=== PATIENT | female | born 1935 | race Caucasian/White ===

== ENCOUNTER → 2016-10-18 | Outpatient (CLI) | payer OTHER ==
[~2016-10-18] MED LIST: ADULT LOW DOSE81 MG PO; BETAPACE AF80 MG PO; CALCIUM OR; CENTRUM TABLET1 TAB PO; CRESTOR20 MG PO; ENTOCORT EC 3 MG3 MG PO; FISH OIL 1,0001 EAC5 PO; GLUCOPHAGE XR500 MG PO; K-DUR10 ME1 PO; LEVOTHROID75 MCG PO; LIPITOR20 MG PO; LOVENOX; NORCO 5-325 TA1 EACH PO; PENTASA OR; PENTASA500 MG PO; SOTALOL 120 MG120 M1 PO; TRINATE TABLET1 TAB PO; ZESTRIL10 MG PO
--- NOTE | ~2016-10-18 | 2DMMODE ---
[facility] [place] [address] 2 D/M-MODE ECHOCARDIOGRAM Name: PEDRO MOLINA Room #: REG CL KurtTrudy#: [id number] Admission: 10/18/16 Attend Phys: Keven Couch MD Discharge: Date of : 39 Date of Service: 10/18/16 1302 Report #: [id number] THIS REPORT FOR: //name// Transthoracic Echocardiography Ordering physician: Keven Couch MD Referring physician: John Almanza MD Model Engine Mechanic: CHRISTOPHER Berry Indications/History: Atrial fibrillation, HTN. BP: 146 / HR: 71bpm Height: 63in Weight: 139.7lb 82 Study data: M-mode, complete 2D, complete spectral Doppler, and color Doppler. Location: Echo laboratory. Routine. Image quality was good. 2D measurements Normal Normal LVID ED 40.7mm 36-57 IVS ED 11.1mm 6-11 LVID ES 26.4mm 23-40 LVPW ED 9.6mm 6-11 LA volume 33ml/m2 16-28 AoRoot diam 28mm 21-37 index ED LVOT diameter 20mm 18-23 Findings: Left ventricle: The cavity size was normal. Wall thickness was normal. Systolic function was normal. The estimated ejection fraction was in the range of 60% to 65%. Wall motion was normal. Right ventricle: The cavity size was normal. Systolic function was normal. Right atrium: The atrium was normal in size. Left atrium: The atrium was normal in size. Volume index: 33ml/m2 (S). Aortic valve: Trileaflet; mildly calcified leaflets. Doppler: There was no stenosis. No regurgitation. Peak velocity: 133.7cm/s (S). [address] [address] 2 D/M-MODE ECHOCARDIOGRAM Name: PEDRO MOLINA Room #: REG YANELIS Mcmillan#: [id number] Admission: 10/18/16 Attend Phys: Keven Couch MD Discharge: Date of : 37 Date of Service: 10/18/16 1302 Report #: [id number] Mitral valve: Structurally normal valve. Doppler: There was no evidence for stenosis. No regurgitation. Peak E-wave velocity: 67.5cm/s. Peak A-wave velocity: 82.6cm/s. Tricuspid valve: Structurally normal valve. Doppler: There was no evidence for stenosis. Mild regurgitation. Regurgitant peak velocity: 268.3cm/s. Peak RV-RA gradient: 29mm Hg (S). Pulmonic valve: Structurally normal valve. Doppler: There was no evidence for stenosis. No regurgitation. Pericardium: There was no pericardial effusion. Aorta: Aortic root: The aortic root was normal in size. Pulmonary artery: Systolic pressure was estimated to be 34mm Hg. Diastolic function: Doppler parameters are consistent with abnormal left ventricular relaxation (grade 1 diastolic dysfunction). Systemic veins: Inferior vena cava: The vessel was normal in size; the respirophasic diameter changes were in the normal range (= 50%). Conclusions 1. Left ventricle: The cavity size was normal. Wall thickness was normal. Systolic function was normal. The estimated ejection fraction was in the range of 60% to 65%. 2. Right ventricle: The cavity size was normal. 3. Left atrium: The atrium was normal in size. 4. Aortic valve: Trileaflet; mildly calcified leaflets. There was no stenosis. 5. Mitral valve: No regurgitation. 6. Tricuspid valve: Mild regurgitation. <ELECTRONICALLY SIGNED> By: Keven Couch MD 10/18/16 141 1302 10 Keven Couch MD /alden
== END ==
LOC: CV 12:46
DX: I48.91 Unspecified atrial fibrillation (principal); I10 Essential (primary) hypertension

== ENCOUNTER 2018-08-22 06:48 | Inpatient (IN) | payer OTHER ==
[~2018-08-22] VITALS: Ht 160 cm; Wt 69.8 kg
--- NOTE | ~2018-08-22 | HC ---
[facility] [place] [address] CONSULTATION Name: PEDRO MOLINA Room #: 219-P ADM IN M.R.#: [id number] Admission: 08/22/18 Attend Phys: Carol Coelho MD Discharge: Date of : 37 Report #: [id number] THIS REPORT FOR: //name// CC: John Coelho HISTORY OF PRESENT ILLNESS: This is an 83-year-old white female who was seen in consultation regarding to persistent unexplained leukocytosis. She is accompanied by her granddaughter. She was seen previously at [facility] and is followed by Dr. John Almanza. He recommended hematology consultation for white count of 30,000, which has not been performed nor pursued by the patient over the past 2 months. She denies any suspicious palpable masses or pain. She has not had any recently known infections. She has not had sweats, chills, fevers. Because of recent illness, she has lost weight, but less than 10%. PAST MEDICAL HISTORY: Significant for paroxysmal atrial fibrillation. She has known medically managed hypertension and hyperlipidemia. She also has Crohn's disease. ALLERGIES: None known. MEDICATIONS: As listed on the MFR. SOCIAL HISTORY: She is nondrinker, nonsmoker. FAMILY HISTORY: Not contributory. REVIEW OF SYSTEMS: As in history of present illness. PHYSICAL EXAMINATION: GENERAL: Shows her to be alert. Granddaughter is present. She currently is afebrile. HEENT: Normocephalic. NECK: Supple. She has no palpable supraclavicular, axillary lymph nodes. CHEST: Clear. CARDIOVASCULAR: Normal S1, S2. ABDOMEN: Soft. There is no palpable spleen. EXTREMITIES: No clubbing, cyanosis or edema. NEUROLOGIC: No focal localized signs. PSYCHIATRIC: Not agitated or confused. LYMPHATICS: No suspicious adenopathy. LABORATORY DATA: Bhumika records were reviewed, which showed a white count of 27,000, but no differential included. [address] [address] CONSULTATION Name: PEDRO MOLINA HOMER Room #: 219-P ADM IN .R.#: [id number] Admission: 08/22/18 Attend Phys: Carol Coelho MD Discharge: Date of : 37 Report #: [id number] ASSESSMENT: Unexplained leukocytosis. PLAN: I have ordered a CBC with differential along with LDH, flow cytometry and a pathology review. Full and further recommendations will be forthcoming. Thanks for asking us to see her in consultation being allowed to participate in her care. By: 1718 0133 Cathleen Box MD /nt
--- NOTE | ~2018-08-22 | 2DMMODE ---
[facility] [address] [place] [address] 2 D/M-MODE ECHOCARDIOGRAM Name: JESSEPEDROELIS LAWSON Room #: 219-P ADM IN M.R.#: [id number] Admission: 08/22/18 Attend Phys: Carol Coelho MD Discharge: Date of : 39 Date of Service: 08/22/18 1339 Report #: [id number] THIS REPORT FOR: //name// APPROVED REPORT Study performed: 08/22/2018 12:28:07 EXAM: Comprehensive 2D, Doppler, and color-flow Echocardiogram Patient Location: Echo lab Room #: 219 Status: routine BSA: 1.72 HR: 82 bpm BP: 145/73 mmHg Other Information Study Quality: Adequate Indications Diabetes Atrial Fibrillation Hypertension/HDD 2D Dimensions RVDd: 30.77 mm IVSd: 12.13 (7-11mm) LVOT Diam: 18.85 (18-24mm) LVDd: 42.92 mm PWd: 12.01 (7-11mm) Ascending Ao: 28.08 (22-36mm) LVDs: 31.19 (25-40mm) Aortic Root: 28.20 mm IVC: 22.00 mm Volumes Left Atrial Volume (Systole) Single Plane 4CH: 54.85 mL Single Plane 2CH: 60.36 mL LA ESV Index: 38.00 mL/m2 Aortic Valve AoV Peak Aleksandar.: 1.26 m/s AO Peak Gr.: 6.32 mmHg LVOT Max P.64 mmHg LVOT Max V: 0.95 m/s SARAH Vmax: 2.12 cm2 Mitral Valve E/A Ratio: 1.9 MV Decel. Time: 204.27 ms [facility] [address] [place] [address] 2 D/M-MODE ECHOCARDIOGRAM Name: PEDRO MOLINA [place] Room #: 219-P [facility] IN .R.#: [id number] Admission: 08/22/18 Attend Phys: Carol Coelho MD Discharge: Date of : 39 Date of Service: 08/22/18 1339 Report #: [id number] MV E Max Aleksandar.: 1.03 m/s MV A Aleksandar.: 0.54 m/s MV PHT: 59.24 ms Pulmonary Valve PV Peak Aleksandar.: 0.92 m/s PV Peak Gr.: 3.40 mmHg Tricuspid Valve TR Peak Aleksandar.: 2.66 m/s TR Peak Gr.: 28.33 mmHg PA Pressure: 38.00 mmHg Left Ventricle The left ventricle is normal size. There is normal LV segmental wall motion. Mild concentric left ventricular hypertrophy. The left ventricular systolic function is normal. The left ventricular ejection fraction is within the normal range. LVEF is 55-60%. Right Ventricle The right ventricle is normal size. The right ventricular systolic function is normal. Atria Left atrium is dilated. Right atrium is dilated. Aortic Valve The aortic valve is normal in structure. Aortic valve is calcified. No aortic regurgitation is present. There is no aortic valvular stenosis. Mitral Valve The mitral valve is normal in structure. Mild mitral regurgitation. No evidence of mitral valve stenosis. Tricuspid Valve The tricuspid valve is normal in structure. There is mild tricuspid regurgitation. Estimated PAP 38 mmHg. There is mild pulmonary hypertension. Pulmonic Valve The pulmonary valve is normal in structure. There is no pulmonic valvular regurgitation. Great Vessels The aortic root is normal in size. IVC is dilated and collapses >50% with inspiration. [facility] [address] [place] [address] 2 D/M-MODE ECHOCARDIOGRAM Name: PEDRO MOLINA [place] Room #: 219-P [facility] IN M.R.#: [id number] Admission: 08/22/18 Attend Phys: Carol Coelho MD Discharge: Date of : 37 Date of Service: 08/22/18 1339 Report #: [id number] Pericardium There is no pericardial effusion. <Conclusion> The left ventricle is normal size. Mild concentric left ventricular hypertrophy. The left ventricular systolic function is normal. The right ventricle is normal size. Left atrium is dilated. Right atrium is dilated. Aortic valve is calcified. Mild mitral regurgitation. There is mild tricuspid regurgitation. Estimated PAP 38 mmHg. There is no pericardial effusion. <ELECTRONICALLY SIGNED> By: Keven Couch MD 08/22/181338 38 38 Keven Couch MD /INF
[2018-08-22 06:59] VITALS: BP 145/73
[2018-08-22 12:25] LABS: OBSERVED RETIC COUNT 1.33 % (0.6-2.6)
[2018-08-22 12:46] LABS: % SATURATION 6 % (20-39); IRON 12 ug/dL (50-170); TIBC 215 ug/dL (250-450)
[2018-08-22 13:52] VITALS: BP 128/69
[2018-08-22] MEDS ORDERED: PROBIOTIC1 EAC1 PO (14:49)
[2018-08-22] MEDS ORDERED: IRON325 PO (14:51)
[2018-08-22] MEDS ORDERED: ZOLOFT50 MG PO (14:52)
[2018-08-22] MEDS ORDERED: NASACORT10.8 ML NASAL (14:53)
[2018-08-22 15:08] VITALS: BP 107/61
[2018-08-22 15:31] LABS: URINE BILIRUBIN NEGATIVE (Negative); URINE BLOOD 1+ (Negative); URINE COLOR YELLOW; URINE GLUCOSE-RANDOM* NEGATIVE (Negative); URINE KETONES TRACE (Negative); URINE LEUKOCYTES-REFLEX NEGATIVE (Negative); URINE NITRITE-REFLEX NEGATIVE (Negative); URINE PROTEIN (DIPSTICK) 2+ (Negative); URINE SPECIFIC GRAVITY >= 1.030 (1.005-1.035)
[2018-08-22 15:40] LABS: URINE CLARITY HAZY
[2018-08-22 15:42] LABS: SQUAMOUS 4-10 Moderate /LPF (0-3); URINE RBC 0-2 Rare /HPF (0-2); URINE WBC-REFLEX 0-5 Rare /HPF (0-5)
[2018-08-22 15:43] LABS: BACTERIA-REFLEX >30 Many /HPF (None Seen); CASTS None Seen /LPF (None Seen); CRYSTALS None Seen /LPF (None Seen)
[2018-08-22 16:22] VITALS: BP 139/75
[2018-08-22 20:45] VITALS: BP 111/64
[2018-08-23 04:54] VITALS: BP 128/78
[2018-08-23 06:35] LABS: HEMATOCRIT 29.4 % (37.0-47.0); HEMOGLOBIN 9.8 gm/dL (12.0-15.0); MCHC 33.5 g/dL (28.0-37.0); MCV 74.8 fL (80.0-100.0); PLATELET COUNT 281 thou/uL (150-400); RBC 3.94 mil/uL (4.20-5.00); RDW 15.3 % (10.5-14.5); WBC 26.4 thou/uL (4.0-11.0)
[2018-08-23 06:47] LABS: CALCIUM 10.3 mg/dL (8.5-10.1); CREATININE 0.8 mg/dL (0.6-1.0); POTASSIUM 3.5 mmol/L (3.5-5.1)
[2018-08-23 06:54] LABS: CHOLESTEROL 77 mg/dL (<200); HDL CHOLESTEROL 31 mg/dL (>40); LDL CHOLESTEROL 35 mg/dL (<100); TC:HDL 2.5 Ratio (Not establshd); TRIGLYCERIDE 58 mg/dL (<150); VLDL 12 mg/dL (<40)
[2018-08-23 07:21] VITALS: BP 134/67
[2018-08-23 10:26] LABS: ABSOLUTE NEUTROPHILS 10.3 thou/uL (1.4-8.2); METAMYELOCYTES 1 %
[2018-08-23 10:28] LABS: ATYPICAL LYMPHS 3 %
[2018-08-23 10:29] LABS: ANISOCYTOSIS 1+; OVALOCYTES FEW
[2018-08-23 12:07] VITALS: BP 115/59
[2018-08-23 16:07] VITALS: BP 130/71
[2018-08-23 20:45] VITALS: BP 137/80
[2018-08-23 23:13] VITALS: BP 137/80
[2018-08-24] VITALS (8 sets, daily range): BP systolic 100–175; BP diastolic 61–110
[2018-08-24 00:05] LABS: GLYCOHEMOGLOBIN (HGB A1C) 6.8 % (4.8-5.6)
[2018-08-24 05:37] LABS: ALBUMIN 2.4 g/dL (3.4-5.0); CREATININE 0.7 mg/dL (0.6-1.0); MAGNESIUM 1.3 mg/dL (1.8-2.4); TOTAL BILIRUBIN 0.6 mg/dL (<0.1-1.0); TOTAL PROTEIN 6.5 g/dL (6.4-8.2)
[2018-08-25 03:07] VITALS: BP 135/94
[2018-08-25 08:09] LABS: MAGNESIUM 1.9 mg/dL (1.8-2.4); POTASSIUM 3.4 mmol/L (3.5-5.1)
[2018-08-25 08:54] LABS: HEMATOCRIT 29.5 % (37.0-47.0); HEMOGLOBIN 9.7 gm/dL (12.0-15.0); MCH 24.6 pg (26.0-34.0); MCHC 32.9 g/dL (28.0-37.0); MCV 74.7 fL (80.0-100.0); PLATELET COUNT 333 thou/uL (150-400); RBC 3.95 mil/uL (4.20-5.00); RDW 15.8 % (10.5-14.5); WBC 35.3 thou/uL (4.0-11.0)
[2018-08-25 09:46] LABS: ABSOLUTE NEUTROPHILS 9.2 thou/uL (1.4-8.2); ATYPICAL LYMPHS 10 %
[2018-08-25 09:47] LABS: ANISOCYTOSIS 1+
[2018-08-25 12:26] VITALS: BP 105/58
[2018-08-25 16:00] VITALS: BP 115/84
[2018-08-25 20:45] VITALS: BP 113/62
[2018-08-25 22:57] VITALS: BP 113/62
[2018-08-26 00:06] LABS: HEMATOLOGY COMMENTS Note: (()); HEMOGLOBIN 9.2 g/dL (11.1-15.9)
[2018-08-26 03:42] LABS: CALCIUM 9.6 mg/dL (8.5-10.1); CREATININE 0.6 mg/dL (0.6-1.0); PHOSPHORUS 2.3 mg/dL (2.5-4.9); POTASSIUM 3.4 mmol/L (3.5-5.1)
[2018-08-26 04:23] LABS: HEMATOCRIT 27.9 % (37.0-47.0); HEMOGLOBIN 9.1 gm/dL (12.0-15.0); MCH 24.5 pg (26.0-34.0); MCHC 32.7 g/dL (28.0-37.0); RBC 3.72 mil/uL (4.20-5.00); RDW 15.3 % (10.5-14.5); WBC 35.5 thou/uL (4.0-11.0)
[2018-08-26 04:49] VITALS: BP 125/72
[2018-08-26 08:08] VITALS: BP 139/93
[2018-08-26] MEDS ORDERED: CARDIZEM CD240 MG PO (09:03)
[2018-08-26] MEDS ORDERED: CEFUROXIME250 MG PO (09:03)
[2018-08-26] MEDS ORDERED: ATENOLOL 25MG T25 M1 PO (09:03)
[2018-08-26 10:18] VITALS: BP 139/93
[2018-08-26 11:43] VITALS: BP 139/93
== END 2018-08-26 11:46 | disposition home health service (06) | DRG 871 ==
LOC: 2N 06:48 → ENTRNSPT 08-26 11:37 → EDTRNSPTSTS 08-26 11:39 → 2N 08-26 11:46
PROVIDERS: Hospitalist; Internal Medicine; Internal Medicine Hematology & Oncology
DX: A41.9 Sepsis, unspecified organism (principal); E43 Unspecified severe protein-calorie malnutrition; J18.1 Lobar pneumonia, unspecified organism; E87.1 Hypo-osmolality and hyponatremia; K50.90 Crohn's disease, unspecified, without complications; C91.10 Chronic lymphocytic leukemia of B-cell type not having achieved remission; I48.0 Paroxysmal atrial fibrillation; I10 Essential (primary) hypertension; E78.5 Hyperlipidemia, unspecified; E83.42 Hypomagnesemia; D50.9 Iron deficiency anemia, unspecified; K57.30 Diverticulosis of large intestine without perforation or abscess without bleeding; D46.9 Myelodysplastic syndrome, unspecified; E03.9 Hypothyroidism, unspecified; E11.9 Type 2 diabetes mellitus without complications; Z98.42 Cataract extraction status, left eye; Z79.82 Long term (current) use of aspirin; Z79.899 Other long term (current) drug therapy; Z90.710 Acquired absence of both cervix and uterus; Z68.27 Body mass index [BMI] 27.0-27.9, adult
CPT/HCPCS: 10081; 10797

== ENCOUNTER 2018-12-30 14:02 | Inpatient (IN) | payer OTHER ==
[~2018-12-30] VITALS: Ht 160 cm; Wt 68.9 kg
--- NOTE | ~2018-12-30 | HC ---
[facility] [place] [address] CONSULTATION Name: PEDRO MOLINA Room #: 422-P [facility] IN M.R.#: [id number] Admission: 12/30/18 ������������������ Attend Phys: Ankit Valles MD Discharge: ������������������ Date of : 37 Report #: [id number] THIS REPORT FOR: //name// CC: John Valles DATE OF SERVICE: 12/31/2018 This is Kiki Delgadillo PA-C dictating for Dr. Diego Parson. CHIEF COMPLAINT: Left hip pain. HISTORY OF PRESENT ILLNESS: The patient is a pleasant 83-year-old female who was seen in the Emergency Department at [facility] yesterday after she fell after tripping while she was in the garden. The patient noted immediate pain in her left hip following this fall. The patient reports that she tried pain medication at home without significant relief following the fall. She also reports hitting her head in the fall, but denies any loss of consciousness. The patient was seen in the Emergency Department yesterday where she had x-rays taken showing a left femoral neck fracture. ALLERGIES: No known drug allergies. HOME MEDICATIONS: 1. Aspirin 81 mg. 2. Levothroid 75 mcg. 3. Multivitamin with iron. 4. Calcium. 5. Metformin 500 mg. 6. Mesalamine. 7. Probiotic. 8. Iron 325 mg. 9. Zoloft 50 mg. 10. Nasacort. 11. Lisinopril. PAST MEDICAL AND SURGICAL HISTORY: Significant for D and C, rectal fistula repair, tonsillectomy, Crohn's disease, hypothyroidism, hyperlipidemia, ogq-[id number] diabetes, hypertension, left cataract, atrial fibrillation. SOCIAL HISTORY: The patient lives at home and typically ambulates without assistance. PHYSICAL EXAMINATION: VITAL SIGNS: Temperature 36.9 degrees Celsius, blood pressure 140/61, pulse [facility] [address] [place] [address] CONSULTATION Name: PEDRO MOLINA Room #: 422-P [facility] IN [facility].#: [id number] Admission: 12/30/18 ������������������ Attend Phys: Ankit Valles MD Discharge: ������������������ Date of : 37 Report #: [id number] rate 78, respiratory rate 16. GENERAL: The patient is awake, alert and oriented, in no acute distress. EXTREMITIES: The patient has tenderness to palpation of the left hip, pain with attempted range of motion of the left hip. Left lower extremity is neurovascularly intact. Calf is soft and nontender. Right lower extremity exam is within normal limits. Hip range of motion is within normal limits. Lower extremities neurovascularly intact with calf soft and nontender. IMAGING: Three views of the left hip and pelvis performed on 12/31/2018 shows a left femoral neck fracture. IMPRESSION: Left femoral neck fracture. PLAN: We discussed the patient's diagnosis and treatment options today, both surgical and nonoperative. The patient and her family elected to proceed with operative intervention of the left hip. We will plan for surgery later today. We discussed the limited weightbearing status following surgery, the need for use of assistance devices such as crutches, wheelchair or walker. We discussed need for physical therapy following surgery to regain full use and function. The patient has elected to proceed with operative intervention. ��������������������������������������������� ���������������������������������������� By: ��������������������������������������������� 1437 0415 AKIRA Haskins /nt
[2018-12-30 14:02] VITALS: BP 158/63
[~2018-12-30 14:02] MED LIST changes: +ATENOLOL 25MG T25 M1 PO; +CARDIZEM CD240 MG PO; +CEFUROXIME250 MG PO; +IRON325 PO; +NASACORT10.8 ML NASAL; +PROBIOTIC1 EAC1 PO; +ZOLOFT50 MG PO
[2018-12-30 16:04] LABS: HEMATOCRIT 34.2 % (37.0-47.0); HEMOGLOBIN 11.3 gm/dL (12.0-15.0); MCH 25.9 pg (26.0-34.0); MCHC 33.1 g/dL (28.0-37.0); MCV 78.2 fL (80.0-100.0); RBC 4.38 mil/uL (4.20-5.00); WBC 23.9 thou/uL (4.0-11.0)
[2018-12-30 16:11] LABS: CALCIUM 10.1 mg/dL (8.5-10.1); CREATININE 0.7 mg/dL (0.6-1.0)
[2018-12-30 16:17] LABS: ALBUMIN 3.8 g/dL (3.4-5.0); TOTAL BILIRUBIN 0.5 mg/dL (<0.1-1.0); TOTAL PROTEIN 6.9 g/dL (6.4-8.2)
[2018-12-30 16:18] LABS: APTT 24.4 Seconds (24.5-32.8); PROTIME 10.8 Seconds (9.3-11.4)
--- NOTE | 2018-12-30 17:04 | EKG ---
[place] [address] [facility] [place] [address] ELECTROCARDIOGRAM REPORT Name: PEDRO MOLINA Room #: 170-5 ADM IN M.R.#: [id number] ������������������ Admission: 12/30/18 ������������������ Attend Phys: Ankit Valles MD Discharge: ������������������ Date of : 37 Report #: [id number] ����������������������������������������������������������������� [id number] THIS REPORT FOR: //name// [facility] ED Test Date: 2018-12-30 Test Time: 15:53:51 Pat Name: PEDRO MOLINA Department: Room: 170 Gender: F Supervisor Plate Forming: VIANCA : 1935 Requested By: Parmjit Dobson Order Number: [id number] MD: Roddy William Measurements Intervals [place] Rate: 79 P: 53 SC: 247 QRS: -39 QRSD: 115 T: 165 QT: 395 QTc: 453 Interpretive Statements Sinus rhythm Prolonged SC interval Incomplete RBBB and LAFB Compared to ECG 05/07/2015 10:30:33 First degree AV block now present Left anterior fascicular block now present Nonspecific change in the ST and T-wave segments Electronically Signed On 12-30-2018 17:04:52 CDT by Roddy William [email or web address] ��������������������������������������������� <ELECTRONICALLY SIGNED> ���������������������������������������� By: Roddy William MD, [facility] ��������������������������������������������� 12/30/18 1704 1553 1553 Roddy William MD, [facility] /EPI
[2018-12-30 17:39] VITALS: BP 144/73
[2018-12-30 17:52] VITALS: BP 130/69
[2018-12-30 18:38] VITALS: BP 142/61
[2018-12-30 20:30] VITALS: BP 132/55
--- NOTE | 2018-12-31 03:22 | NUR ---
Per am nurse report, pt came up to unit approx 1800. Pt has left hip fx. Pain controlled with prn pain meds. Pt has been npo since midnight. IVF infusing. Voids in the bedpan. Ortho surgeon will see pt in the am. Call light within reach. Will continue to monitor.
[2018-12-31 04:30] VITALS: BP 118/56
[2018-12-31 06:27] LABS: HEMATOCRIT 30.9 % (37.0-47.0); HEMOGLOBIN 10.2 gm/dL (12.0-15.0); MCH 26.1 pg (26.0-34.0); PLATELET COUNT 164 thou/uL (150-400); RBC 3.91 mil/uL (4.20-5.00); RDW 16.5 % (10.5-14.5)
[2018-12-31 06:38] LABS: CALCIUM 9.1 mg/dL (8.5-10.1); CREATININE 0.6 mg/dL (0.6-1.0); MAGNESIUM 1.4 mg/dL (1.8-2.4)
[2018-12-31 07:25] VITALS: BP 140/61
[2018-12-31 08:50] LABS: ABSOLUTE NEUTROPHILS 4.3 thou/uL (1.4-8.2)
[2018-12-31 08:56] LABS: ATYPICAL LYMPHS 3 %
[2018-12-31 08:57] LABS: ANISOCYTOSIS 1+; MICROCYTES 1+
--- NOTE | 2018-12-31 08:57 | NUR ---
ORDERS FOR PT EVAL AND TREAT RECEIVED. Pt FOUND TO HAVE L DISPLACED FEMORAL NECK FRACTURE S/P FALL AT HOME. ORTHO CONSULT PENDING. WILL NEED UPDATED PT ORDERS FROM ORTHO REGARDING WB STATUS AND ACTIVITY AFTER POC DETERMINED.
[2018-12-31 08:58] LABS: OVALOCYTES FEW
--- NOTE | 2018-12-31 12:52 | NUR ---
Assessment completed.vss.Pt in bed very anxious about going for surgery today. Ortho group reconsult and received call from Dr Ferguson.He was very aggressive while talking to this rn.But rn let him know that consult was called twice last noc and once this am without return call.He said pt will be seen later and one of his partner will be doing the surgery. He has already put in consent for this rn prior to calling this rn even though pt hasn't been seen. Few minutes later,another call come from Dr Liu who finally confirmed that he will be the one operating on pt.Consent form given to pt and signed. At 1248,pt left per bed to surgery accompanied by her family.
--- NOTE | 2018-12-31 15:39 | NUR ---
Case opened to follow for dc planning. [employer] visited with the pt and several family members at bedside including her dtr Caron. The pt is a&ox4 and indicates that she lives independently at home. Her son Colby and 7yr old grandson live with her. She drives and is active. She fell working in her garden. Rehab needs, medicare benefits and dc planning role reviewed. The pt is receptive to a SNF stay at [facility] if she is not able to go home with hh. She has 3 steps to enter her home and everything she needs is on the main level including the laundry. She has had hh in the past with [facility] and would use them again if able to go directly home. SNF listing provided and discussed. [facility] is her first choice and [facility] her second. She knows the lead PT at [facility]. DC materials planner to fax referral. Their admissions liason notified. Pt to have hip surgery today. Possible dc Saturday or Saturday pending her postop progress. Will follow.
--- NOTE | 2018-12-31 15:42 | NUR ---
FAXED REFERRAL TO [facility] SPOKE WITH ABRAM IN ADM. SHE RECEIVED REFERRAL AND WILL REVIEW. PT. HAVING SURGERY TODAY AND WILL FAX PT/OT NOTES ONCE AVAILABLE. DCP TO FOLLOW.
--- NOTE | 2018-12-31 16:47 | NUR ---
FAXED REFERRAL TO [facility] SPOKE WITH GREG IN ADM. SHE RECEIVED REFERRAL AND CAN ACCEPT PT. AT DISCHARGE. PT'S FAMILY IS LOOKING AT 2 FACILITIES. DCP TO FOLLOW.
[2018-12-31 17:00] VITALS: BP 155/62
--- NOTE | 2019-01-01 04:25 | NUR ---
Assumed care of pt at 1900. Dressing on left hip clean and intact. Pain controlled with prn pain meds. Toe-touch weight bearing. 2L O2. IVF infusing. Call light within reach. Will continue to monitor.
[2019-01-01 04:34] VITALS: BP 149/58
[2019-01-01 05:36] LABS: URINE BILIRUBIN NEGATIVE (Negative); URINE BLOOD NEGATIVE (Negative); URINE CLARITY CLEAR; URINE COLOR YELLOW; URINE GLUCOSE-RANDOM* NEGATIVE (Negative); URINE KETONES NEGATIVE (Negative); URINE LEUKOCYTES-REFLEX TRACE (Negative); URINE PROTEIN (DIPSTICK) NEGATIVE (Negative); URINE UROBILINOGEN 0.2 E.U./dl (0.2-1.0)
[2019-01-01 05:51] LABS: URINE NITRITE-REFLEX POSITIVE (Negative)
[2019-01-01 05:54] LABS: BACTERIA-REFLEX 1-9 Few /HPF (None Seen); CASTS None Seen /LPF (None Seen); CRYSTALS None Seen /LPF (None Seen); SQUAMOUS >10 Many /LPF (0-3); URINE RBC 0-2 Rare /HPF (0-2); URINE WBC-REFLEX 6-15 Few /HPF (0-5)
[2019-01-01 08:23] VITALS: BP 155/66
--- NOTE | 2019-01-01 09:47 | NUR ---
FAXED REFERRAL TO [facility] SPOKE WITH BARAM IN ADM. SHE RECEIVED REFERRAL AND WILL REVIEW. DCP TO FOLLOW.
--- NOTE | 2019-01-01 13:36 | NUR ---
[facility] requesting home med list and therapy notes. She anticipates they will have a bed for the pt tomorrow. Pt is TTWB and working with therapy today.
[2019-01-01 15:58] VITALS: BP 164/78
--- NOTE | 2019-01-01 18:38 | NUR ---
PT ASSESSMENT COMPLETED.PT IN AND OUT OF BED TODAY WITH ASSIST.C/O LEFT HIP PAIN.PO MED GIVEN WITH RELIEF.ORTHO GROUP HERE AND NO NEW ORDER NOTED.PT REFUSED DC TO SENIOR SUITES. SHE WILL BE DC TO REHAB IN AM.VOIDED SEVRAL TIMES PER BED PATTON.PERICARE GIVEN.WILL CONTINUE TO MONITOR.
[2019-01-01 19:28] VITALS: BP 154/75
--- NOTE | 2019-01-02 01:13 | NUR ---
ASSESSMENT COMPLETED.PT C/O PAIN ON HER L HIP,MANAGED WITH PO MED.BEDPAN USED FOR ELIMINATION PER PT'S REQUEST.DRSG ON HIP C/D/I.PT ON 2L/NC.PT LOOKING FORWARD TO BE DC'D LATER IN THE DAY TO SNF.FALL PRECAUTIONS IN PLACE,CALL LIGHT WITHIN REACH.
[2019-01-02 02:59] VITALS: BP 170/76
[2019-01-02] MEDS ORDERED: ENOXAPARIN40 MG/0.1 SUBQ (09:38)
[2019-01-02] MEDS ORDERED: HYDROCODON-ACE1 EAC7 PO (09:38)
[2019-01-02 10:38] VITALS: BP 173/84
--- NOTE | 2019-01-02 11:33 | NUR ---
PT. DISCHARGING TODAY TO [facility] FAXED DC ORDERS/SUMMAARY TO FACILITY AND SPOKE WITH ABRAM IN ADM. SHE RECEIVED DC ORDERS AND ARRANGED TRANSPORT VIA VAN FOR 1145. NOTIFIED PT'S DTR (DARÍO) OF DISCHARGE AND TRANSPORT TIME. UNIT NOTIFIED AND CHART COPY PER US. RN TO CALL REPORT TO [phone].
--- NOTE | 2019-01-02 11:45 | NUR ---
ASSUMED CARE AT 0700, SHIFT ASSESSMENT DONE, MEDS GIVEN, BP ELEVATED THIS AM. BP MEDS GIVEN. DENIES ANY PAIN, NAUSEA. DISCHARGE ORDER RECEIVED. PERIPHERAL IV WAS TAKEN OUT. REPORT WILL BE CALLED. WILL CONTINE TO ASSESS AND ASSIST WITH ADLs NEEDED.
--- NOTE | 2019-01-07 13:52 | O ---
[facility] [place] [address] OPERATIVE REPORT Name: PEDRO MOLINA Room #: 422-P [facility] IN M.R.#: [id number] Admission: 12/30/18 ������������������ Attend Phys: Ankit Valles MD Discharge: 01/02/19 ������������������ Date of : 37 Report #: [id number] THIS REPORT FOR: //name// CC: John Valles PREOPERATIVE DIAGNOSIS: Left hip femoral neck fracture, valgus impacted. POSTOPERATIVE DIAGNOSIS: Left hip femoral neck fracture, valgus impacted. PROCEDURE PERFORMED: Left hip pinning. SURGEON: Diego Parson M.D. KEY WORKER: Kiki Lombardi PA-C. ANESTHESIA: General per LMA. FLUIDS: Please see anesthesia records. ESTIMATED BLOOD LOSS: Less than 10 mL. DESCRIPTION OF PROCEDURE: After proper identification of the patient and operative site in preoperative holding area, the operative site was signed by myself. The patient's daughter and granddaughter were present. We reviewed the risks, benefits, alternatives and complications of her injury as well as treatment options including left hip pinning versus hemiarthroplasty. The patient and family wish to proceed with left hip pinning. After being cleared medically and by Anesthesia, she was brought back to the operative suite after induction of satisfactory general anesthesia per LMA. She was carefully positioned on the [place] operative table. The torso was stabilized. Legs were placed in well-padded boot, stabilization. Legs were scissored. Intraoperative radiographs revealed no change in alignment of the fracture. Fracture pattern was amenable to hip pinning. Hip was sterilely prepped and draped in usual manner. An [place] isolation drape was utilized and an incision over the lateral aspect of the greater trochanter was planned. Skin was incised sharply. Full thickness skin flaps were developed. Multipin guide was advanced to the lateral cortex of the femur where 3 guide pins were inserted in an inverted triangle manner. Outer cortices were drilled and then two 80 mm partially threaded 7.3 mm titanium lag screws were inserted and one 75 mm screw. These were hand tightened, all had good purchase. Hardware was well positioned in the AP and lateral radiographs. Fracture was stable. Wound was thoroughly irrigated with normal saline. 0 Vicryl was used to close the fascia, 2-[address] [address] OPERATIVE REPORT Name: JESSEPEDRO Room #: 422-P [facility] IN M.R.#: [id number] Admission: 12/30/18 ������������������ Attend Phys: Ankit Valles MD Discharge: 01/02/19 ������������������ Date of : 37 Report #: [id number] subcutaneous tissues followed by sameera. Sterile dressing was applied. The patient awakened and transferred to the recovery room in stable condition. ��������������������������������������������� <ELECTRONICALLY SIGNED> ���������������������������������������� By: Dieog Parson MD ��������������������������������������������� 01/07/19 1352 1527 181 MD jaylene Rodríguez
== END 2019-01-02 12:35 | DRG 481 ==
LOC: ER 14:02 → 4E 15:31 → EROBS 15:31 → 4E 17:53
PROVIDERS: Emergency Medicine; Nurse Practitioner; ADMIT Internal Medicine
PROC: 0QH734Z Insertion of Internal Fixation Device into Left Upper Femur, Percutaneous Approach (ICD-10-PCS; principal; 2018-12-30)
DX: S72.002A Fracture of unspecified part of neck of left femur, initial encounter for closed fracture (principal); K50.90 Crohn's disease, unspecified, without complications; C91.10 Chronic lymphocytic leukemia of B-cell type not having achieved remission; I48.91 Unspecified atrial fibrillation; E83.42 Hypomagnesemia; K57.90 Diverticulosis of intestine, part unspecified, without perforation or abscess without bleeding; M21.052 Valgus deformity, not elsewhere classified, left hip; E03.9 Hypothyroidism, unspecified; E78.5 Hyperlipidemia, unspecified; S00.83XA Contusion of other part of head, initial encounter; W01.0XXA Fall on same level from slipping, tripping and stumbling without subsequent striking against object, initial encounter; E11.9 Type 2 diabetes mellitus without complications; I10 Essential (primary) hypertension; Z98.42 Cataract extraction status, left eye; Y99.8 Other external cause status; Y92.89 Other specified places as the place of occurrence of the external cause; Z79.82 Long term (current) use of aspirin; Z79.899 Other long term (current) drug therapy; Z90.710 Acquired absence of both cervix and uterus; Y93.H2 Activity, gardening and landscaping
CPT/HCPCS: 10084; 50010; 50101; 50386; 51412; 51538; 52304; 53400; 53404; 56525; 57092; 62110; 62900; 70005

== ENCOUNTER → 2019-04-13 | Outpatient (CLI) | payer OTHER ==
[~2019-04-13] MED LIST changes: +ENOXAPARIN40 MG/0.1 SUBQ; +HYDROCODON-ACE1 EAC7 PO
--- NOTE | 2019-04-13 11:25 | 2DMMODE ---
[facility] [address] [place] [address] 2 D/M-MODE ECHOCARDIOGRAM Name: PEDRO MOLINA RENNY Room #: REG CL [facility]#: [id number] ������������� Admission: 04/13/19 ������������� Attend Phys: Keven Couch MD Discharge: ��� ������������� ��� Date of : 39 Date of Service: 04/13/19 1125 �� Report #: [id number] �������� ��������������������������������������������[id number] THIS REPORT FOR: //name// APPROVED REPORT Study performed: 04/13/2019 10:10:05 EXAM: Comprehensive 2D, Doppler, and color-flow Echocardiogram Patient Location: Out-Patient Room #: Echo Lab 1 Status: routine BSA: 1.72 HR: 56 bpm BP: 138/68 mmHg Rhythm: NSR Other Information Study Quality: Adequate Indications Atrial Fibrillation 2D Dimensions RVDd: 48.99 mm IVSd: 10.92 (7-11mm) LVOT Diam: 19.88 (18-24mm) LVDd: 44.71 mm PWd: 11.30 (7-11mm) Ascending Ao: 32.95 (22-36mm) LVDs: 28.68 (25-40mm) Aortic Root: 31.62 mm IVC: 17.00 mm Volumes Left Atrial Volume (Systole) Single Plane 4CH: 60.19 mL Single Plane 2CH: 59.32 mL LA ESV Index: 40.00 mL/m2 Aortic Valve AoV Peak Aleksandar.: 1.15 m/s AO Peak Gr.: 5.33 mmHg LVOT Max P.72 mmHg LVOT Max V: 1.09 m/s SARAH Vmax: 2.92 cm2 Mitral Valve E/A Ratio: 1.9 MV Decel. Time: 349.60 ms MV E Max Aleksandar.: 0.74 m/s [facility] [address] [place] [address] 2 D/M-MODE ECHOCARDIOGRAM Name: PEDRO MOLINABETH Room #: REG [facility]#: [id number] ������������� Admission: 04/13/19 ������������� Attend Phys: Keven Couch MD Discharge: ��� ������������� ��� Date of : 39 Date of Service: 04/13/19 1125 �� Report #: [id number] �������� ��������������������������������������������[id number] MV A Aleksandar.: 0.39 m/s MV PHT: 101.39 ms IVRT: 73.82 ms Pulmonary Valve PV Peak Aleksandar.: 0.81 m/s PV Peak Gr.: 2.64 mmHg Pulmonary Vein P Vein S: 0.58 m/s P Vein A: 0.26 m/s P Vein D: 0.51 m/s P Vein A Dur.: 83.0 msec P Vein S/D Ratio: 1.14 Tricuspid Valve TR Peak Aleksandar.: 2.93 m/s TR Peak Gr.: 34.29 mmHg PA Pressure: 39.00 mmHg Left Ventricle The left ventricle is normal size. Mild concentric left ventricular hypertrophy. The left ventricular systolic function is normal. The left ventricular ejection fraction is within the normal range. LVEF is 55-60%. Right Ventricle Right ventricle is dilated. The right ventricular systolic function is normal. Atria Left atrium is dilated. Right atrium is dilated. Aortic Valve The aortic valve is normal in structure. Aortic valve is calcified. No aortic regurgitation is present. There is no aortic valvular stenosis. Mitral Valve The mitral valve is normal in structure. Mild mitral regurgitation. No evidence of mitral valve stenosis. Tricuspid Valve The tricuspid valve is normal in structure. Moderate tricuspid regurgitation. Pulmonic Valve The pulmonary valve is normal in structure. There is no pulmonic valvular regurgitation. [facility] [address] [place] [address] 2 D/M-MODE ECHOCARDIOGRAM Name: PEDRO MOLINA RENNY Room #: REG [facility]#: [id number] ������������� Admission: 04/13/19 ������������� Attend Phys: Keven Couch MD Discharge: ��� ������������� ��� Date of : 39 Date of Service: 04/13/19 1125 �� Report #: [id number] �������� ��������������������������������������������[id number] Great Vessels The aortic root is normal in size. The ascending aorta is normal in size. IVC is normal in size and collapses >50% with inspiration. Pericardium There is no pericardial effusion. <Conclusion> The left ventricle is normal size. Mild concentric left ventricular hypertrophy. The left ventricular systolic function is normal. Right ventricle is dilated. The right ventricular systolic function is normal. Left atrium is dilated. Aortic valve is calcified. Mild mitral regurgitation. Moderate tricuspid regurgitation. ��������������������������������������������� <ELECTRONICALLY SIGNED> ���������������������������������������� By: Keven Couch MD ��������������������������������������������� 04/13/19 1125 1125 1125 Keven Couch MD /INF
== END ==
LOC: CV 09:44
DX: I08.3 Combined rheumatic disorders of mitral, aortic and tricuspid valves (principal); I11.9 Hypertensive heart disease without heart failure; I48.91 Unspecified atrial fibrillation; E11.9 Type 2 diabetes mellitus without complications; D64.9 Anemia, unspecified

== ENCOUNTER → 2019-10-29 | Outpatient (CLI) | payer OTHER | LOC: SJCVC 17:06 | DX: R94.31 Abnormal electrocardiogram [ECG] [EKG] (principal); I45.10 Unspecified right bundle-branch block; I44.0 Atrioventricular block, first degree; I10 Essential (primary) hypertension; I48.0 Paroxysmal atrial fibrillation; E78.00 Pure hypercholesterolemia, unspecified ==

== ENCOUNTER → 2020-03-14 | Outpatient (CLI) | payer OTHER ==
[~2020-03-14] VITALS: Ht 160 cm; Wt 64.9 kg
[~2020-03-14] MED LIST changes: +ATENOLOL 25 MG25 M1 PO; +CARDIZEM CD240 M1 PO; +CENTRUM SILVER1 EAC5 PO; -CENTRUM TABLET1 TAB PO; +GLUCOPHAGE XR500 M1 PO; -GLUCOPHAGE XR500 MG PO; -LEVOTHROID75 MCG PO; +LEVOXYL75 MCG PO; +LISINOPRIL10 MG PO; +SERTRALINE HCL50 MG PO; +TAMBOCOR 100 M100 M1 PO; -ZOLOFT50 MG PO
--- NOTE | 2020-03-15 16:07 | PATH ---
[facility] [address] [place] [address] PATHOLOGY RPT PROCEDURE Name: MALAIKA MOLINA RENNY Room #: REG CORRIE Kurt.#: [id number] Admission: 03/14/20 Date of : 39 Discharge: Report #: [id number] Path Case #: [id number] [facility] Accession Number: [id number] . 01 Material submitted: . PART A: ileum - BIOPSY OF DISTAL ILEUM. Modifiers: distal PART B: colon - RANDOM BIOPSY OF TRANSVERSE COLON R/O DYSPLASIA. Modifiers: transverse PART C: colon - RANDOM BIOPSY OF DESCENDING COLON R/O DYSPLASIA. Modifiers: descending PART D: colon - RANDOM BIOPSY OF SIGMOID COLON R/O DYSPLASIA. Modifiers: sigmoid PART E: rectum - RANDOM BIOPSY OF RECTUM R/O DYSPLASIA . 01 Clinical history: . Hx of Crohn's disease, Hx polyps, colitis . 02 Diagnosis: A. Small bowel mucosa, distal ileum, endoscopic biopsy: - Moderate chronic active ileitis with focal surface ulceration, findings compatible with the history of Crohn's disease. - Negative for dysplasia or malignancy. . B. Large intestine, random transverse colon rule out dysplasia, endoscopic biopsy: - Mild chronic active colitis, history of Crohn's disease. - Negative for dysplasia or malignancy. . C. Large intestine mucosa, descending colon rule out dysplasia, endoscopic biopsy: - Quiescent colitis, history of Crohn's disease. - Negative for dysplasia or malignancy. . D. Large intestine mucosa, sigmoid colon rule out dysplasia, endoscopic biopsy: - Mild chronic active colitis, history of Crohn's disease. - Negative for dysplasia or malignancy. . E. Large intestinal mucosa, rectum rule out dysplasia, endoscopic biopsy: - Quiescent colitis, history of Crohn's disease. - One fragment showing reactive hyperplastic changes. - Negative for dysplasia or malignancy. (IUV:karthikeyan; 03/15/2020) QMS 03/15/2020 1401 Local . 02 Electronically signed: . Virgen Gonzalez MD, [place] [address] PATHOLOGY RPT PROCEDURE Name: MALAIKA MOLINA Room #: REG CORRIE Mcmillan#: [id number] Admission: 03/14/20 Date of : 39 Discharge: Report #: [id number] Path Case #: [id number]- [id number] . 01 Gross description: . A. The specimen is received in formalin labeled "Jeannette Malaika, BX of distal ileum" and consists of multiple fragments of pink-oliva tissue measuring 1.1 x 0.3 x 0.3 cm in aggregate which are entirely submitted in A1. . B. The specimen is received in formalin labeled "Jeannette, Malaika, random BX of transverse colon rule out dysplasia" and consists of multiple fragments of pink-oliva tissue measuring 1.1 x 0.4 x 0.3 cm in aggregate which are entirely submitted in B1. . C. The specimen is received in formalin labeled "Jeannette, Malaika, random BX of descending colon rule out dysplasia" and consists of multiple fragments of oliva tissue measuring 1.1 x 0.6 x 0.3 cm aggregate which are entirely submitted in C1. . D. The specimen is received in formalin labeled "Jeannette, Malaika, random BX of sigmoid colon rule out dysplasia" and consists of multiple fragments of pink-oliva tissue measuring 0.8 x 0.5 x 0.2 cm in aggregate which are entirely submitted in D1. . E. The specimen is received in formalin labeled "Jeannette, Malaika, random BX of rectum rule out dysplasia" and consists of multiple fragments of oliva tissue measuring 0.6 x 0.3 x 0.2 cm in aggregate which are entirely submitted in E1. (SHANIA; 03/14/2020) JFQ/MARYURI 03/14/2020 1742 Local . 02 Pathologist provided ICD-10: K52.9, K63.3, Z87.19, Z86.010 . 02 CPT . 038265, 469811, 178769, 328838, 963539 Specimen Comment: A courtesy copy of this report has been sent to [phone], [phone] Specimen Comment: [id number] Specimen Comment: Report sent to / DR FERNANDEZ Performed at: 01 [facility] [address] [place] [address] [address], [place], [place] [address] MD Edison Negro MD Phone: [phone] Performed at: [address] [facility] [id number] MD Virgen Gonzalez MD Phone: [phone]
--- NOTE | 2020-03-17 09:14 | P ---
[facility] [place] [address] [place] [address] PROCEDURE REPORT Name: PEDRO MOLINA Room #: REG CORRIE Deyanira#: [id number] Admission: 03/14/20 Attend Phys: Caesar Gutierrez MD Discharge: Date of : 39 Report #: [id number] THIS REPORT FOR: cc: Darleen Almanza MD, David R. MD Thesing, John A. MD ~ CC: DARLEEN Box MD DATE OF SERVICE: 03/14/2020 OUTPATIENT COLONOSCOPY BRIEF HISTORY: The patient is an 84-year-old woman well known to me with longstanding history of Crohn's disease. She has had previous ileocolectomy and I believe many years ago, she had perianal disease as well. She presents for high risk screening colonoscopy due to her history of Crohn's disease. She has also had colon polyps in the past. She has diabetes mellitus as well as chronic lymphocytic leukemia. At this time, I believe she is not on any specific treatment for her chronic lymphocytic leukemia. PREOPERATIVE DIAGNOSIS: History of Crohn's disease for high risk screening. POSTOPERATIVE DIAGNOSES: 1. Mildly active ileal Crohn's disease. 2. Unremarkable ileocolonic anastomosis. 3. Normal appearing colonic mucosa. 4. Njtu-rv-qaxgmffy sigmoid diverticulosis coli. MEDICATIONS: Deep sedation with propofol per anesthesia. SPECIMENS: 1. Biopsies of ileum. 2. Random biopsies of transverse colon. 3. Random biopsies of descending colon. 4. Random biopsies of sigmoid colon. 5. Random biopsies of rectum. ESTIMATED BLOOD LOSS: 5 mL. PROCEDURE: Colonoscopy to ileocolonic anastomosis and distal ileum. FINDINGS: Prior to propofol sedation, procedure of colonoscopy was reviewed with the patient as well as potential risks and its complications. She [facility] [address] [place] [address] PROCEDURE REPORT Name: JESSEPEDRO Room #: REG CORRIE Mcmillan#: [id number] Admission: 03/14/20 Attend Phys: Caesar Gutierrez MD Discharge: Date of : 37 Report #: [id number] indicates she understands and desires to proceed. DESCRIPTION OF PROCEDURE: With the patient in left lateral decubitus position, digital examination was completed, which revealed no evidence of active perianal disease. Subsequently, the Olympus video colonoscope was introduced into the rectum, advanced under direct vision to the proximal colon. The ileocolonic anastomosis was identified. The scope was advanced into the distal ileum and the distal 7-10 cm was inspected. There were noted to be scattered erosions and a few very small ulcers in the ileum. There was no evidence of active bleeding. The intervening mucosa was unremarkable. Multiple biopsies were obtained. At that point, the scope was slowly withdrawn and careful circumferential views were obtained. Distal to the anastomosis, the colonic mucosa was completely normal. No ulcers or erosions were seen. Random biopsies were obtained. The only other abnormality noted on withdrawal of the scope was moderately severe sigmoid diverticular disease. There was no endoscopic evidence of diverticulitis. Scope was withdrawn in the rectum. No abnormalities were seen. Upon retroflexion, no abnormalities were seen. Scope was withdrawn. The patient tolerated the procedure well. CONDITION OF THE PATIENT UPON DISCHARGE: Following procedure, the patient drowsy and will be discharged home when fully ambulatory. INSTRUCTIONS TO THE PATIENT AND FAMILY AT THE TIME OF DISCHARGE: This patient has had a longstanding history of Crohn's disease and obviously has had complications in the past requiring surgery. <ELECTRONICALLY SIGNED> By: Caesar Gutierrez MD 03/17/20 0914 1004 1030 Caesar Gutierrez MD /nt
--- NOTE | 2020-03-17 09:14 | P ---
[facility] [address] [place] [address] PROCEDURE REPORT Name: PEDRO MOLINA Room #: REG CORRIE Mcmillan#: [id number] Admission: 03/14/20 Attend Phys: Caesar Gutierrez MD Discharge: Date of : 37 Report #: [id number] THIS REPORT FOR: cc: John Almanza MD, David R. MD Thesing,Caesar Saucedo MD ~ CC: John Gutierrez DATE OF SERVICE: 03/14/2020 ADDENDUM The number on that report is [id number]. INSTRUCTIONS TO THE PATIENT AND FAMILY AT THE TIME OF DISCHARGE: The patient has evidence of mildly active Crohn's disease with ulcerations and erosions in the ileum. She has had a previous right hemicolectomy. However, it is noted this surgery was not for Crohn's disease as she did have sessile polyps that were too large to remove endoscopically more than 10 years ago. She clearly has active ileal disease. Looking through the records, she has had active ileal disease in all the colonoscopies done in the past 10 years. The disease has always been mild. She has intermittently been treated with Entocort. She is currently on mesalamine. She is asymptomatic. She has mild active disease. The question is how aggressive to be with therapy in this 84-year-old patient. We will follow up on biopsies obtained today. Again, consider a course of budesonide, but she has failed to obtain longstanding remission of mucosal resolution of ulcerations and erosions. However, given the fact that she has done well over the past 10 years, more intense treatment may not necessarily be of benefit to the patient. Also, we will obtain labs as well. It is noted she has had problems with iron deficiency anemia in the past. In addition, we will get a stool calprotectin. It is noted that typically her sed rate and CRP are negative even though she has mildly active disease. It appeared to be nice to have a marker to follow to monitor any further treatment, so we can potentially use modality other than colonoscopy. We will have her return to see me in followup in the office. <ELECTRONICALLY SIGNED> By: Caesar Gutierrez MD 03/17/20 0914 1010 1059 Caesar Gutierrez MD /nt
== END | disposition home or self-care (01) ==
LOC: GI 08:00
PROVIDERS: ATTEND Specialist
DX: K52.9 Noninfective gastroenteritis and colitis, unspecified (principal); K63.3 Ulcer of intestine; K50.019 Crohn's disease of small intestine with unspecified complications; K57.30 Diverticulosis of large intestine without perforation or abscess without bleeding; E11.9 Type 2 diabetes mellitus without complications; C95.10 Chronic leukemia of unspecified cell type not having achieved remission; I10 Essential (primary) hypertension; I48.91 Unspecified atrial fibrillation; E78.00 Pure hypercholesterolemia, unspecified; E78.5 Hyperlipidemia, unspecified; E03.9 Hypothyroidism, unspecified; D64.9 Anemia, unspecified; Z87.19 Personal history of other diseases of the digestive system; Z86.010 Personal history of colon polyps; Z98.0 Intestinal bypass and anastomosis status; Z98.890 Other specified postprocedural states; Z79.899 Other long term (current) drug therapy; Z98.41 Cataract extraction status, right eye; Z98.42 Cataract extraction status, left eye; Z96.1 Presence of intraocular lens; Z79.01 Long term (current) use of anticoagulants; Z11.59 Encounter for screening for other viral diseases
CPT/HCPCS: 62110; 62900

== ENCOUNTER 2020-03-31 15:15 | Emergency (ER) | payer OTHER ==
[~2020-03-31] VITALS: Ht 160 cm; Wt 63.5 kg
[2020-03-31 16:09] LABS: HEMATOCRIT 34.1 % (37.0-47.0); HEMOGLOBIN 11.4 gm/dL (12.0-15.0); MCHC 33.4 g/dL (28.0-37.0); MCV 80.9 fL (80.0-100.0); PLATELET COUNT 231 thou/uL (150-400); RBC 4.22 mil/uL (4.20-5.00); RDW 14.5 % (10.5-14.5); WBC 18.9 thou/uL (4.0-11.0)
[2020-03-31 16:16] LABS: CALCIUM 10.1 mg/dL (8.5-10.1); CREATININE 0.8 mg/dL (0.6-1.0); MAGNESIUM 1.4 mg/dL (1.8-2.4); POTASSIUM 4.3 mmol/L (3.5-5.1)
[2020-03-31 16:33] LABS: ABSOLUTE NEUTROPHILS 6.4 thou/uL (1.4-8.2)
[2020-03-31 16:54] LABS: URINE BILIRUBIN NEGATIVE (Negative); URINE BLOOD NEGATIVE (Negative); URINE COLOR YELLOW; URINE GLUCOSE-RANDOM* NEGATIVE (Negative); URINE KETONES NEGATIVE (Negative); URINE LEUKOCYTES-REFLEX TRACE (Negative); URINE PROTEIN (DIPSTICK) TRACE (Negative); URINE SPECIFIC GRAVITY 1.025 (1.005-1.035); URINE UROBILINOGEN 0.2 E.U./dl (0.2-1.0)
[2020-03-31 16:59] LABS: URINE CLARITY SL HAZY; URINE NITRITE-REFLEX POSITIVE (Negative)
[2020-03-31 17:06] LABS: BACTERIA-REFLEX >30 Many /HPF (None Seen); CASTS None Seen /LPF (None Seen); CRYSTALS None Seen /LPF (None Seen)
[2020-03-31 17:07] LABS: SQUAMOUS 0-3 Few /LPF (0-3); TRANSITIONAL EPITHEL CELL 0-3 Few /LPF (None Seen); URINE RBC None Seen /HPF (0-2); URINE WBC-REFLEX 6-15 Few /HPF (0-5)
[2020-03-31] MEDS ORDERED: KEFLEX500 M1 PO (17:24)
[2020-03-31 17:38] VITALS: BP 150/48
--- NOTE | 2020-04-01 07:51 | EKG ---
[facility] [address] [place] [address] ELECTROCARDIOGRAM REPORT Name: PEDRO MOLINA [id number] Admission: 03/31/20 Attend Phys: Discharge: 03/31/20 Date of : 39 Report #: [id number] THIS REPORT FOR: cc: APRIL - Olga family physician/PCP APRIL - Olga family physician/PCP Roddy William MD [facility] THIS REPORT FOR: //name// [facility] ED Test Date: 2020-03-31 Test Time: 15:35:56 Pat Name: PEDRO MOLINA Department: Room: Gender: F Web Applications Administrator: [facility] : 1935 Requested By: Sathish Estrada Order Number: [id number] MD: Roddy William Measurements Intervals [place] Rate: 51 P: -23 WY: 235 QRS: -38 QRSD: 111 T: -48 QT: 473 QTc: 436 Interpretive Statements Sinus rhythm Prolonged [place] interval RSR' in V1 or V2, right VCD Leftward axis and LVH Poor R wave progression Compared to ECG 12/30/2018 15:53:51 [address] change in the ST and T wave segments Electronically Signed On 04-01-2020 7:50:51 CDT by Roddy William [email or web address] <ELECTRONICALLY SIGNED> By: Roddy William MD, [facility] 04/01/20 0750 1535 1535 Roddy William MD, [facility] /EPI
== END 2020-03-31 17:51 | disposition home or self-care (01) ==
LOC: ER 15:15
PROVIDERS: Emergency Medicine
DX: N39.0 Urinary tract infection, site not specified (principal); J34.89 Other specified disorders of nose and nasal sinuses; R53.81 Other malaise; I48.91 Unspecified atrial fibrillation; E11.9 Type 2 diabetes mellitus without complications; E03.9 Hypothyroidism, unspecified; E78.5 Hyperlipidemia, unspecified; I10 Essential (primary) hypertension; Z90.89 Acquired absence of other organs; Z98.890 Other specified postprocedural states; Z79.82 Long term (current) use of aspirin; Z79.899 Other long term (current) drug therapy

== ENCOUNTER 2020-05-12 17:01 | Emergency (ER) | payer OTHER ==
[~2020-05-12] VITALS: Ht 160 cm; Wt 62.1 kg
[~2020-05-12 17:01] MED LIST changes: +KEFLEX500 M1 PO
[2020-05-12] MEDS ORDERED: ZOLOFT100 MG PO (18:12)
[2020-05-12 18:28] LABS: HEMATOCRIT 33.9 % (37.0-47.0); HEMOGLOBIN 11.4 gm/dL (12.0-15.0); MCHC 33.6 g/dL (28.0-37.0); MCV 80.2 fL (80.0-100.0); PLATELET COUNT 206 thou/uL (150-400); RBC 4.23 mil/uL (4.20-5.00); RDW 14.9 % (10.5-14.5); URINE BILIRUBIN NEGATIVE (Negative); URINE BLOOD NEGATIVE (Negative); URINE CLARITY CLOUDY; URINE COLOR YELLOW; URINE GLUCOSE-RANDOM* NEGATIVE (Negative); URINE KETONES TRACE (Negative); URINE LEUKOCYTES-REFLEX 1+ (Negative); URINE NITRITE-REFLEX POSITIVE (Negative); URINE PROTEIN (DIPSTICK) TRACE (Negative); URINE SPECIFIC GRAVITY >= 1.030 (1.005-1.035); URINE UROBILINOGEN 0.2 E.U./dl (0.2-1.0); WBC 19.2 thou/uL (4.0-11.0)
[2020-05-12 18:36] LABS: BACTERIA-REFLEX >30 Many /HPF (None Seen); SQUAMOUS >10 Many /LPF (0-3)
[2020-05-12 18:38] LABS: ANION GAP 10 mmol/L (7-16); BUN 21 mg/dL (7-18); CALCIUM 10.2 mg/dL (8.5-10.1); CHLORIDE 103 mmol/L (98-107); CO2 23 mmol/L (21-32); GLUCOSE 131 mg/dL (74-106); SODIUM 136 mmol/L (136-145); URINE RBC 0-2 Rare /HPF (0-2)
[2020-05-12 18:39] LABS: CASTS None Seen /LPF (None Seen); CRYSTALS None Seen /LPF (None Seen)
[2020-05-12 18:49] LABS: ALBUMIN 3.7 g/dL (3.4-5.0); SGOT 18 U/L (15-37); SGPT 23 U/L (30-65); TOTAL BILIRUBIN 0.3 mg/dL (0.2-1.0); TOTAL PROTEIN 6.7 g/dL (6.4-8.2); TROPONIN-I <0.06 ng/mL (<0.06)
[2020-05-12 19:08] LABS: ABSOLUTE NEUTROPHILS 6.1 thou/uL (1.4-8.2); PLATELET ESTIMATE NORMAL
[2020-05-12] MEDS ORDERED: KEFLEX500 M1 PO (19:41)
[2020-05-12 19:46] VITALS: BP 99/68
--- NOTE | 2020-05-13 08:41 | EKG ---
[facility] [address] [place] [address] ELECTROCARDIOGRAM REPORT Name: PEDRO MOLINA Room #: DEP Deyanira#: [id number] Admission: 05/12/20 Attend Phys: Discharge: 05/12/20 Date of : 39 Report #: [id number] THIS REPORT FOR: cc: John Almanza MD, David R. MD Lundgren,Roddy Chan MD [facility] ~ THIS REPORT FOR: //name// [facility] ED Test Date: 2020-05-12 Test Time: 18:18:44 Pat Name: PEDRO MOLINA Department: Room: Gender: F Emergency Physician: [facility] : 1935 Requested By: Igor Keating Order Number: [id number] MD: Roddy William Measurements Intervals [place] Rate: 52 P: -78 [place]: 235 QRS: -42 QRSD: 123 T: -53 QT: 461 QTc: 429 Interpretive Statements Sinus rhythm Prolonged OK interval Nonspecific IVCD with LAD Nonspecific ST and T wave abnormality Compared to ECG 03/31/2020 15:35:56 Ectopic atrial rhythm now present No significant change was found Electronically Signed On 05-13-2020 8:41:21 CDT by Roddy William [email or web address] <ELECTRONICALLY SIGNED> By: Roddy William MD, FAC 05/13/20 0841 181 Roddy William MD, FAC /EPI
== END 2020-05-12 19:54 | disposition home or self-care (01) ==
LOC: ER 17:01
PROVIDERS: Nurse Practitioner
DX: N39.0 Urinary tract infection, site not specified (principal); J34.89 Other specified disorders of nose and nasal sinuses; R63.0 Anorexia; I48.91 Unspecified atrial fibrillation; F32.9 Major depressive disorder, single episode, unspecified; E03.9 Hypothyroidism, unspecified; E78.5 Hyperlipidemia, unspecified; E11.9 Type 2 diabetes mellitus without complications; I10 Essential (primary) hypertension; Z85.6 Personal history of leukemia; Z98.890 Other specified postprocedural states; Z79.2 Long term (current) use of antibiotics; Z79.899 Other long term (current) drug therapy; Z79.82 Long term (current) use of aspirin; Z90.89 Acquired absence of other organs

== ENCOUNTER → 2020-06-30 | Outpatient (CLI) | payer OTHER ==
[~2020-06-30] MED LIST changes: +ZOLOFT100 MG PO
== END ==
LOC: SJCVCIMAG 08:39
PROVIDERS: ATTEND Internal Medicine Cardiovascular Disease
DX: I48.91 Unspecified atrial fibrillation (principal); R00.0 Tachycardia, unspecified; I49.3 Ventricular premature depolarization; I10 Essential (primary) hypertension; E78.00 Pure hypercholesterolemia, unspecified; Z79.899 Other long term (current) drug therapy

== ENCOUNTER → 2020-07-06 | Outpatient (CLI) | payer OTHER ==
[~2020-07-06] VITALS: Ht 160 cm; Wt 63.5 kg
[2020-07-06 09:03] VITALS: BP 150/71
--- NOTE | 2020-07-06 09:56 | EKG ---
[facility] [address] [facility] [place] [address] ELECTROCARDIOGRAM REPORT Name: PEDRO MOLINA Room #: REG [facility]#: [id number] Admission: 07/06/20 Attend Phys: Keven Couch MD Discharge: Date of : 37 Report #: [id number] THIS REPORT FOR: cc: John Almanza MD, David R. MD Lammoglia, Francisco J. MD ~ THIS REPORT FOR: //name// [facility] Test Date: 2020-07-06 Test Time: 09:00:59 Pat Name: PEDRO MOLINA Department: Room: Gender: F Nurse Navigator: [facility] : 1935 Requested By: Keven Couch Order Number: [id number] MD: Nic Loza Measurements Intervals [place] Rate: 86 P: 66 [place]: 166 QRS: -51 QRSD: 95 T: 196 QT: 358 QTc: 429 Interpretive Statements Sinus rhythm RSR' in V1 or V2 Possible LVH with secondary repol abnrm Compared to ECG 05/12/2020 18:18:44 First degree AV block no longer present Electronically Signed On 07-06-2020 9:55:53 CDT by Nic Loza [email or web address] <ELECTRONICALLY SIGNED> By: Nic Loza MD 07/06/2055 9 9 Nic Loza MD /EPI
--- NOTE | 2020-07-06 11:15 | CATHLAB ---
[facility] [place] [address] [place] [address] INVASIVE PROCEDURE REPORT Name: PEDRO MOLINA Room #: REG CORRIE HicksTrudy#: [id number] Admission: 07/06/20 Attend Phys: Keven Couch MD Discharge: Date of : 37 Report #: [id number] THIS REPORT FOR: cc: John Almanza MD, David R. MD Park, Jin S. MD ~ APPROVED REPORT Study performed: 07/06/2020 08:24:21 Patient Details The patient is a 85 year-old female Event Personnel Keven Couch Candle Wrapping Machine Operator, Ellis Mehta RTR Scrub, Abraham Majano RTR Monitor, Mckinley Bradshaw RN hospice care transitions coordinator Performed Art Access - R femoral artery* Left Heart Cath w/or w/o Coronaries [id number] [facility] [address] Initial Mod Sed Same Phys/QHP Gr5y 825235 84775 Mod Sed Same Phys/QHP Ea [id number] Hemostasis with Manual pressure Indication Dizziness and vertigo, Dyspnea, Positive stress test Risk Factors Hypercholesterolemia, Hypertension, Diabetes Procedure Narrative The Right Groin^ was infiltrated with 1% Lidocaine subcutaneous anesthesia. A PINNACLE 4FR Sheath #[id number] sheath was inserted into the RFA^. Coronary angiography was performed using coronary diagnostic catheters. The right coronary system was accessed and visualized with a JR4 catheter. The left coronary system was accessed and visualized with a JL4 catheter. The left ventricle was accessed and visualized with a PIGTAIL catheter. Left ventricular/Aortic Valve gradient assessed via catheter pullback. Hemostasis was obtained with manual pressure following sheath removal without any complications. The patient tolerated the procedure well and there were no complications associated with the procedure. There was no hematoma. Intraoperative Conscious Sedation [facility] [address] [place] [address] INVASIVE PROCEDURE REPORT Name: PEDRO MOLINA Room #: REG CL [facility]#: [id number] Admission: 07/06/20 Attend Phys: Keven Couch MD Discharge: Date of : 39 Report #: [id number] Sedation start time: 1015 Case end Time: 1053 Fentanyl 100 mcg Versed 2 mg Fluoro Time: 4.60 minutes Dose: DAP 3734.00 cGycm2 1058 mGy Contrast Type and Amount: Omnipaque 80 ml Coronary Angiography The patient's coronary anatomy is co- dominant. Diagnostic Cath Left Main The left main artery is a large-caliber vessel, patent with no flow-limiting lesions. LAD The LAD is a moderate-sized caliber vessel, traverses the anterior wall and wraps around the apex. The distal segment is tortuous in its course. There is a mild stenosis in the proximal segment, 30%. Diagonal 1 This is a small to moderate-sized caliber vessel, patent with no flow-limiting lesions. Diagonal 2 This is a small to moderate-sized caliber vessel, patent with no flow-limiting lesions. Circumflex The left circumflex artery is a codominant vessel. There is a mild stenosis in the proximal segment, 30%. OM1 This is a moderate-sized caliber vessel, patent with no flow-limiting lesions. OM2 This is a moderate-sized caliber vessel, patent with no flow-limiting lesions. Right Coronary The RCA is a moderate-sized caliber vessel with a mild stenosis proximally, 30%. R PDA This is a small to moderate-sized caliber vessel, patent with no flow-limiting lesions. Left Ventriculography Left Ventriculography was not performed. Ejection Fraction was >55% based off patient's Nuclear Cardiac Stress Test. An LVEDP was measured and there is no gradient across the outflow tract. Hemodynamics The aortic pressure is 142/70 mmHg with a mean of 102 mmHg. The left ventricular pressure is 144/10 mmHg with a mean of mmHg. The left ventricular end diastolic pressure is 13 mmHg. Conclusion 1. There is mild, nonobstructive coronary artery disease in the [address] [address] INVASIVE PROCEDURE REPORT Name: PEDRO MOLINA Room #: REG [facility]#: [id number] Admission: 07/06/20 Attend Phys: Keven Couch MD Discharge: Date of : 39 Report #: [id number] epicardial vessels. 2. There is normal LV systolic function. 3. Recommend guideline directed medical therapy. <ELECTRONICALLY SIGNED> By: Keven Couch MD 07/06/20 1115 1115 1115 Keven Couch MD /INF
== END | disposition home or self-care (01) ==
LOC: CATH 07:49
PROVIDERS: ATTEND Internal Medicine Cardiovascular Disease
DX: R94.39 Abnormal result of other cardiovascular function study (principal); I25.10 Atherosclerotic heart disease of native coronary artery without angina pectoris; R06.00 Dyspnea, unspecified; R42 Dizziness and giddiness; I10 Essential (primary) hypertension; E11.9 Type 2 diabetes mellitus without complications; E78.00 Pure hypercholesterolemia, unspecified; I48.91 Unspecified atrial fibrillation; C94.80 Other specified leukemias not having achieved remission; Z98.890 Other specified postprocedural states; Z79.899 Other long term (current) drug therapy; Z79.82 Long term (current) use of aspirin; Z79.01 Long term (current) use of anticoagulants

== ENCOUNTER → 2020-07-20 | Outpatient (CLI) | payer OTHER | LOC: SJCVC 13:18 | PROVIDERS: ATTEND Internal Medicine Cardiovascular Disease | DX: I48.0 Paroxysmal atrial fibrillation (principal); R94.31 Abnormal electrocardiogram [ECG] [EKG]; I45.10 Unspecified right bundle-branch block; R00.0 Tachycardia, unspecified; R94.39 Abnormal result of other cardiovascular function study; R68.84 Jaw pain; I10 Essential (primary) hypertension; E78.00 Pure hypercholesterolemia, unspecified; Z79.899 Other long term (current) drug therapy ==

== ENCOUNTER → 2021-07-20 | Outpatient (CLI) | payer OTHER | LOC: SJCVCIMAG 07:29 | PROVIDERS: ATTEND Internal Medicine Cardiovascular Disease | DX: I45.10 Unspecified right bundle-branch block (principal); R94.31 Abnormal electrocardiogram [ECG] [EKG]; I11.9 Hypertensive heart disease without heart failure; I48.0 Paroxysmal atrial fibrillation; I25.10 Atherosclerotic heart disease of native coronary artery without angina pectoris; E78.00 Pure hypercholesterolemia, unspecified; F41.9 Anxiety disorder, unspecified; E03.9 Hypothyroidism, unspecified; Z88.0 Allergy status to penicillin; Z79.82 Long term (current) use of aspirin; Z79.84 Long term (current) use of oral hypoglycemic drugs; Z79.899 Other long term (current) drug therapy ==